=== PATIENT | female | born 1970 | race Caucasian/White ===

== ENCOUNTER 2017-07-05 14:58 | Inpatient (IN) | payer MEDICARE ==
[~2017-07-05] VITALS: Ht 170.2 cm; Wt 50.1 kg
[2017-07-05] MEDS ORDERED: ACETAMINOPHEN325 MG PO (15:23)
[2017-07-05] MEDS ORDERED: ENDOCET 10-3251 TAB PO (15:25)
[2017-07-05] MEDS ORDERED: IPRAT-ALBUT 0.5-3 ML UPD ×2 (15:26→15:27)
[2017-07-05] MEDS ORDERED: LIPITOR40 MG PO (15:27)
[2017-07-05] MEDS ORDERED: BAYER CHEWABLE81 MG PO (15:27)
[2017-07-05] MEDS ORDERED: KLONOPIN0.5 MG PO (15:28)
[2017-07-05] MEDS ORDERED: LOVENOX40 MG/0.4 SC (15:29)
[2017-07-05] MEDS ORDERED: FLUDROCORTISON0.1 MG PO (15:30)
[2017-07-05] MEDS ORDERED: HYDROCODONE-APA1 TAB PO (15:30)
[2017-07-05] MEDS ORDERED: LEVAQUIN750 MG PO (15:31)
[2017-07-05] MEDS ORDERED: MIDODRINE HCL10 MG PO (15:32)
[2017-07-05] MEDS ORDERED: REMERON15 MG PO (15:32)
[2017-07-05] MEDS ORDERED: NICODERM C1 PATCH .1 TRANSDERM (15:33)
[2017-07-05] MEDS ORDERED: ONCOLOGY MOUTHWA5 ML PO (15:35)
[2017-07-05] MEDS ORDERED: ZOFRAN ODT4 MG/UDTAB PO (15:37)
[2017-07-05] MEDS ORDERED: PROTONIX40 MG PO (15:38)
[2017-07-05] MEDS ORDERED: ONDANSETRON4 MG/2 M3 IV (15:38)
[2017-07-05] MEDS ORDERED: DILANTIN100 MG PO (15:39)
[2017-07-05] MEDS ORDERED: ZOSYN 3.3753.375 G1 IV (15:40)
[2017-07-05] MEDS ORDERED: COMPAZINE10 MG PO (15:41)
[2017-07-05] MEDS ORDERED: SODIUM CL 0.91000 ML IV (15:42)
[2017-07-05] MEDS ORDERED: TOPAMAX200 MG PO (15:42)
[2017-07-05 16:01] VITALS: BP 111/63
[2017-07-05 16:59] VITALS: BP 111/62
[2017-07-05 18:52] LABS: BASOPHILS 0.1 % (0-2); EOSINOPHILS 0.3 % (0-7); HEMATOCRIT 28.6 % (36.0-48.0); HEMOGLOBIN 8.9 g/dL (12-16); IMMATURE GRANULOCYTES 0.5 % (0-5); LYMPHOCYTES 10.9 % (15-50); MCH 23.3 pg (26.0-34.0); MCHC 31.1 g/dL (31.0-37.0); MCV 74.9 fL (80.0-100.0); MEAN PLATELET VOLUME 8.5 fL (7.4-10.4); MONOCYTES 9.4 % (2-11); NEUTROPHILS 78.8 % (40-80); PLATELET COUNT 464 10x3/uL (130-400); RBC 3.82 10x6/uL (4.00-5.40); RDW 19.3 % (11.5-14.5); WBC 19.3 10x3/uL (4.8-10.8)
[2017-07-05 19:06] LABS: ALBUMIN 1.7 g/dL (3.4-5.0); ALKALINE PHOSPHATASE 353 U/L (46-116); ALT (SGPT) 34 U/L (10-68); CALC OSMOLALITY 275 mosm/kg (275-300); CALCIUM 8.9 mg/dL (8.5-10.1); CARBON DIOXIDE 27.1 mmol/L (21.0-32.0); CHLORIDE - SERUM 104 mmol/L (98-107); CREATININE - SERUM 0.5 mg/dL (0.6-1.3); GLUCOSE 111 mg/dL (74-106); PROTEIN - SERUM 7.1 g/dL (6.4-8.2); SODIUM 139 mmol/L (136-145); UREA NITROGEN 5 mg/dL (7-18); eGFR NON AFRICAN AMERICAN > 90 mL/min (90-120)
[2017-07-05 19:08] LABS: POTASSIUM - SERUM 2.9 mmol/L (3.5-5.1)
[2017-07-05 20:33] VITALS: BP 97/59
[2017-07-05 23:53] LABS: ALBUMIN 1.8 g/dL (3.4-5.0); ALKALINE PHOSPHATASE 374 U/L (46-116); ALT (SGPT) 29 U/L (10-68); BILIRUBIN - TOTAL 0.32 mg/dL (0.2-1.3); CALC OSMOLALITY 275 mosm/kg (275-300); CALCIUM 8.8 mg/dL (8.5-10.1); CARBON DIOXIDE 21.9 mmol/L (21.0-32.0); CHLORIDE - SERUM 104 mmol/L (98-107); CREATININE - SERUM 0.6 mg/dL (0.6-1.3); GLUCOSE 108 mg/dL (74-106); PROTEIN - SERUM 7.8 g/dL (6.4-8.2); SODIUM 139 mmol/L (136-145); UREA NITROGEN 5 mg/dL (7-18); eGFR NON AFRICAN AMERICAN > 90 mL/min (90-120)
[2017-07-05 23:56] LABS: POTASSIUM - SERUM 3.5 mmol/L (3.5-5.1)
[2017-07-06 00:41] VITALS: BP 104/65
[2017-07-06 05:41] LABS: HEMATOCRIT 31.5 % (36.0-48.0); HEMOGLOBIN 9.7 g/dL (12-16); MCH 23.2 pg (26.0-34.0); MCHC 30.8 g/dL (31.0-37.0); MCV 75.4 fL (80.0-100.0); MEAN PLATELET VOLUME 8.6 fL (7.4-10.4); PLATELET COUNT 518 10x3/uL (130-400); RBC 4.18 10x6/uL (4.00-5.40); RDW 19.7 % (11.5-14.5); WBC 23.7 10x3/uL (4.8-10.8)
[2017-07-06 05:50] VITALS: BP 98/55
[2017-07-06 06:09] LABS: ALBUMIN 1.9 g/dL (3.4-5.0); ALKALINE PHOSPHATASE 373 U/L (46-116); ALT (SGPT) 29 U/L (10-68); BILIRUBIN - TOTAL 0.33 mg/dL (0.2-1.3); CALC OSMOLALITY 276 mosm/kg (275-300); CALCIUM 9.4 mg/dL (8.5-10.1); CARBON DIOXIDE 22.8 mmol/L (21.0-32.0); CHLORIDE - SERUM 103 mmol/L (98-107); CREATININE - SERUM 0.5 mg/dL (0.6-1.3); GLUCOSE 99 mg/dL (74-106); POTASSIUM - SERUM 3.3 mmol/L (3.5-5.1); PROTEIN - SERUM 7.7 g/dL (6.4-8.2); SODIUM 140 mmol/L (136-145); UREA NITROGEN 6 mg/dL (7-18); eGFR NON AFRICAN AMERICAN > 90 mL/min (90-120)
[2017-07-06 06:17] LABS: LYMPHOCYTES 12 % (15-50); MONOCYTES 3 % (2-11); NEUTROPHILS 81 % (40-80); PLATELET ESTIMATE NORMAL; PLATELET MORPHOLOGY GIANT PLTS PRESENT
[2017-07-06 08:13] VITALS: BP 100/60
[2017-07-06 11:07] LABS: BASOPHILS 0.1 % (0-2); EOSINOPHILS 0.4 % (0-7); HEMATOCRIT 29.5 % (36.0-48.0); HEMOGLOBIN 9.3 g/dL (12-16); IMMATURE GRANULOCYTES 0.6 % (0-5); LYMPHOCYTES 11.8 % (15-50); MCH 23.5 pg (26.0-34.0); MCHC 31.5 g/dL (31.0-37.0); MCV 74.7 fL (80.0-100.0); MEAN PLATELET VOLUME 8.5 fL (7.4-10.4); MONOCYTES 8.4 % (2-11); NEUTROPHILS 78.7 % (40-80); PLATELET COUNT 493 10x3/uL (130-400); RBC 3.95 10x6/uL (4.00-5.40); RDW 19.3 % (11.5-14.5); WBC 22.2 10x3/uL (4.8-10.8)
[2017-07-06 11:25] VITALS: BP 98/61
[2017-07-06 15:44] VITALS: BP 95/64
[2017-07-06 20:30] VITALS: BP 96/62
[2017-07-07 00:30] VITALS: BP 103/57
[2017-07-07 04:30] VITALS: BP 90/51
[2017-07-07 05:47] LABS: BASOPHILS 0.1 % (0-2); EOSINOPHILS 0 % (0-7); HEMATOCRIT 28.9 % (36.0-48.0); IMMATURE GRANULOCYTES 0.7 % (0-5); LYMPHOCYTES 5.6 % (15-50); MCHC 31.1 g/dL (31.0-37.0); MCV 73.9 fL (80.0-100.0); MEAN PLATELET VOLUME 8.7 fL (7.4-10.4); NEUTROPHILS 90.6 % (40-80); PLATELET COUNT 527 10x3/uL (130-400); RBC 3.91 10x6/uL (4.00-5.40); RDW 19.4 % (11.5-14.5); WBC 24.6 10x3/uL (4.8-10.8)
[2017-07-07 06:04] LABS: ALBUMIN 1.8 g/dL (3.4-5.0); ALKALINE PHOSPHATASE 345 U/L (46-116); ALT (SGPT) 22 U/L (10-68); CALC OSMOLALITY 276 mosm/kg (275-300); CALCIUM 9.4 mg/dL (8.5-10.1); CARBON DIOXIDE 20.6 mmol/L (21.0-32.0); CHLORIDE - SERUM 101 mmol/L (98-107); CREATININE - SERUM 0.6 mg/dL (0.6-1.3); POTASSIUM - SERUM 3.6 mmol/L (3.5-5.1); PROTEIN - SERUM 7.6 g/dL (6.4-8.2); SODIUM 138 mmol/L (136-145); UREA NITROGEN 6 mg/dL (7-18); eGFR NON AFRICAN AMERICAN > 90 mL/min (90-120)
[2017-07-07 06:05] LABS: GLUCOSE 161 mg/dL (74-106)
[2017-07-07 08:29] VITALS: BP 86/54
[2017-07-07 11:31] VITALS: BP 90/57
[2017-07-07 15:47] VITALS: BP 97/62
[2017-07-07 20:30] VITALS: BP 95/56
[2017-07-08 00:30] VITALS: BP 102/62
[2017-07-08 04:30] VITALS: BP 97/60
[2017-07-08 05:25] LABS: BASOPHILS 0.1 % (0-2); EOSINOPHILS 0 % (0-7); HEMATOCRIT 28.4 % (36.0-48.0); HEMOGLOBIN 8.8 g/dL (12-16); IMMATURE GRANULOCYTES 0.6 % (0-5); MCH 23.2 pg (26.0-34.0); MCV 74.9 fL (80.0-100.0); MEAN PLATELET VOLUME 8.7 fL (7.4-10.4); MONOCYTES 4.1 % (2-11); NEUTROPHILS 89.2 % (40-80); PLATELET COUNT 566 10x3/uL (130-400); RBC 3.79 10x6/uL (4.00-5.40); WBC 28.6 10x3/uL (4.8-10.8)
[2017-07-08 05:48] LABS: ALBUMIN 1.8 g/dL (3.4-5.0); ALKALINE PHOSPHATASE 290 U/L (46-116); ALT (SGPT) 27 U/L (10-68); CALCIUM 9.5 mg/dL (8.5-10.1); CARBON DIOXIDE 22.3 mmol/L (21.0-32.0); CHLORIDE - SERUM 105 mmol/L (98-107); CREATININE - SERUM 0.6 mg/dL (0.6-1.3); GLUCOSE 149 mg/dL (74-106); POTASSIUM - SERUM 3.7 mmol/L (3.5-5.1); PROTEIN - SERUM 7.6 g/dL (6.4-8.2); SODIUM 140 mmol/L (136-145); eGFR NON AFRICAN AMERICAN > 90 mL/min (90-120)
[2017-07-08 05:52] LABS: CALC OSMOLALITY 279 mosm/kg (275-300); UREA NITROGEN 8 mg/dL (7-18)
[2017-07-08 08:21] VITALS: BP 114/66
[2017-07-08 12:15] VITALS: BP 121/70
[2017-07-08 13:21] VITALS: Ht 170.2 cm; Wt 50.1 kg
[2017-07-08 15:58] LABS: % SATURATION 8 % (15-55); IRON 19 ug/dl (35-150); TOTAL IRON BIND CAPACITY 224 ug/dl (260-445); UNSAT IRON BIND CAPACITY 205 ug/dl (150-375)
[2017-07-08 17:24] VITALS: BP 92/62
[2017-07-08 20:00] VITALS: BP 103/69
[2017-07-09 06:15] LABS: ALBUMIN 1.9 g/dL (3.4-5.0); ALKALINE PHOSPHATASE 316 U/L (46-116); BILIRUBIN - TOTAL 0.21 mg/dL (0.2-1.3); CALCIUM 9.3 mg/dL (8.5-10.1); CHLORIDE - SERUM 103 mmol/L (98-107); CREATININE - SERUM 0.7 mg/dL (0.6-1.3); PROTEIN - SERUM 7.6 g/dL (6.4-8.2); SODIUM 140 mmol/L (136-145); UREA NITROGEN 6 mg/dL (7-18); eGFR NON AFRICAN AMERICAN > 90 mL/min (90-120)
[2017-07-09 06:20] LABS: BASOPHILS 0.1 % (0-2); EOSINOPHILS 0.3 % (0-7); HEMATOCRIT 28.3 % (36.0-48.0); HEMOGLOBIN 8.7 g/dL (12-16); IMMATURE GRANULOCYTES 0.5 % (0-5); LYMPHOCYTES 11.1 % (15-50); MCH 23.1 pg (26.0-34.0); MCHC 30.7 g/dL (31.0-37.0); MCV 75.3 fL (80.0-100.0); MEAN PLATELET VOLUME 8.5 fL (7.4-10.4); MONOCYTES 8.2 % (2-11); NEUTROPHILS 79.8 % (40-80); PLATELET COUNT 551 10x3/uL (130-400); RBC 3.76 10x6/uL (4.00-5.40); WBC 21.8 10x3/uL (4.8-10.8)
[2017-07-09 06:44] LABS: ALT (SGPT) 43 U/L (10-68); CALC OSMOLALITY 276 mosm/kg (275-300); GLUCOSE 90 mg/dL (74-106)
[2017-07-09 06:46] VITALS: BP 111/66
[2017-07-09 06:46] LABS: POTASSIUM - SERUM 2.4 mmol/L (3.5-5.1)
[2017-07-09 08:51] VITALS: BP 119/61
[2017-07-09 11:04] VITALS: BP 110/68
[2017-07-09 12:29] VITALS: BP 104/71
[2017-07-09 17:28] VITALS: BP 108/71
[2017-07-09 20:00] VITALS: BP 113/73
[2017-07-10] VITALS: BP 112/61
[2017-07-10 04:00] VITALS: BP 111/60
[2017-07-10 06:11] LABS: BASOPHILS 0.1 % (0-2); EOSINOPHILS 0.2 % (0-7); HEMATOCRIT 29.4 % (36.0-48.0); HEMOGLOBIN 9.1 g/dL (12-16); IMMATURE GRANULOCYTES 0.5 % (0-5); LYMPHOCYTES 9.9 % (15-50); MCH 23.2 pg (26.0-34.0); MCV 74.8 fL (80.0-100.0); MEAN PLATELET VOLUME 8.8 fL (7.4-10.4); MONOCYTES 7.6 % (2-11); NEUTROPHILS 81.7 % (40-80); PLATELET COUNT 583 10x3/uL (130-400); RBC 3.93 10x6/uL (4.00-5.40); WBC 24.4 10x3/uL (4.8-10.8)
[2017-07-10 06:20] LABS: ALKALINE PHOSPHATASE 324 U/L (46-116); ALT (SGPT) 39 U/L (10-68); BILIRUBIN - TOTAL 0.26 mg/dL (0.2-1.3); CALC OSMOLALITY 273 mosm/kg (275-300); CALCIUM 9.6 mg/dL (8.5-10.1); CARBON DIOXIDE 21.4 mmol/L (21.0-32.0); CHLORIDE - SERUM 102 mmol/L (98-107); GLUCOSE 96 mg/dL (74-106); PROTEIN - SERUM 7.8 g/dL (6.4-8.2); SODIUM 138 mmol/L (136-145); UREA NITROGEN 6 mg/dL (7-18)
[2017-07-10 06:23] LABS: CREATININE - SERUM 0.5 mg/dL (0.6-1.3); eGFR NON AFRICAN AMERICAN > 90 mL/min (90-120)
[2017-07-10 08:00] VITALS: BP 117/71
[2017-07-10 09:18] LABS: FOLATE (FOLIC ACID) - SERUM 3.5 ng/mL (>3.0)
[2017-07-10 12:00] VITALS: BP 112/70
[2017-07-10 17:09] VITALS: BP 111/69
[2017-07-10 21:01] VITALS: BP 107/60
[2017-07-11 06:12] LABS: BASOPHILS 0.1 % (0-2); EOSINOPHILS 0.2 % (0-7); HEMATOCRIT 28.6 % (36.0-48.0); HEMOGLOBIN 8.9 g/dL (12-16); IMMATURE GRANULOCYTES 0.7 % (0-5); MCH 23.5 pg (26.0-34.0); MCHC 31.1 g/dL (31.0-37.0); MCV 75.5 fL (80.0-100.0); MEAN PLATELET VOLUME 8.8 fL (7.4-10.4); MONOCYTES 5.7 % (2-11); NEUTROPHILS 85.3 % (40-80); PLATELET COUNT 566 10x3/uL (130-400); RBC 3.79 10x6/uL (4.00-5.40); RDW 20.4 % (11.5-14.5); WBC 32.6 10x3/uL (4.8-10.8)
[2017-07-11 06:22] VITALS: BP 111/65
[2017-07-11 06:24] LABS: CALC OSMOLALITY 273 mosm/kg (275-300); CALCIUM 9.6 mg/dL (8.5-10.1); CARBON DIOXIDE 22.7 mmol/L (21.0-32.0); CHLORIDE - SERUM 102 mmol/L (98-107); CREATININE - SERUM 0.5 mg/dL (0.6-1.3); GLUCOSE 95 mg/dL (74-106); SODIUM 138 mmol/L (136-145); UREA NITROGEN 6 mg/dL (7-18); eGFR NON AFRICAN AMERICAN > 90 mL/min (90-120)
[2017-07-11 06:33] LABS: POTASSIUM - SERUM 2.6 mmol/L (3.5-5.1)
[2017-07-11 08:51] VITALS: BP 97/59
[2017-07-11 11:40] VITALS: BP 106/71
== END 2017-07-11 14:26 | disposition home or self-care (01) | DRG 190 ==
LOC: D.M2 14:58
PROVIDERS: Family Medicine; Internal Medicine Nephrology
DX: J44.0 Chronic obstructive pulmonary disease with (acute) lower respiratory infection (principal); J18.9 Pneumonia, unspecified organism; E43 Unspecified severe protein-calorie malnutrition; C34.90 Malignant neoplasm of unspecified part of unspecified bronchus or lung; F17.203 Nicotine dependence unspecified, with withdrawal; Z68.1 Body mass index [BMI] 19.9 or less, adult; J44.1 Chronic obstructive pulmonary disease with (acute) exacerbation; I11.0 Hypertensive heart disease with heart failure; I50.9 Heart failure, unspecified; F32.9 Major depressive disorder, single episode, unspecified; K21.9 Gastro-esophageal reflux disease without esophagitis; D64.81 Anemia due to antineoplastic chemotherapy; D50.9 Iron deficiency anemia, unspecified; E87.6 Hypokalemia; E78.5 Hyperlipidemia, unspecified; F12.10 Cannabis abuse, uncomplicated; J30.9 Allergic rhinitis, unspecified; R63.6 Underweight